=== PATIENT | male | born 1945 | race Caucasian/White ===

== ENCOUNTER 2021-12-17 10:09 | Inpatient (IN) | payer BC, MEDICARE ==
--- NOTE | 2021-12-17 11:04 | XR ---
EXAMINATION TYPE: XR chest 2V DATE OF EXAM: 12/17/2021 COMPARISON: NONE HISTORY: Cough. TECHNIQUE: Frontal and lateral views of the chest are obtained. FINDINGS: There is no focal air space opacity, pleural effusion, or pneumothorax seen. The cardiac silhouette size is within normal limits. Multilevel spurring in the spine is present. Metallic hardwa re from right shoulder surgery is partially imaged. Metallic anchors left humeral head from rotator c uff surgery are noted. IMPRESSION: No acute cardiopulmonary process.
[2021-12-17] MEDS ORDERED: DEXAMETHASONE SOD PHOSPHATE 10 MG/ML 1 ML VIAL IV STA (12:24)
[2021-12-17] MEDS ORDERED: IPRATROPIUM 0.5 MG/2.5 ML NEBU INHALATION STA (12:24)
[2021-12-17] MEDS ORDERED: ALBUTEROL NEBULIZED 2.5 MG/3 ML INHALATION STA (12:24)
--- NOTE | 2021-12-17 12:30 | ED ---
General Adult HPI - General Chief complaint: Upper Respiratory Infection Stated complaint: Cough,EMEKA Time Seen by Provider: 12/17/21 12:13 Source: patient Mode of arrival: ambulatory Limitations: no limitations - History of Present Illness Initial comments: Dictation was produced using [employer] dictation software. please excuse any grammatical, word or spelling errors. Chief Complaint: 76-year-old male presents with cough History of Present Illness: 76-year-old male presents emergency Department with cough. Patient has been having symptoms intimately for the last 8 weeks. Patient diagnosed with rotavirus 8 weeks ago. He has been having intermittent cough and shortness of breath since then. He is gone 3 course of 2 antibiotics and steroids twice. He is also had inhaler treatment. Patient at the bedside reports that he's had a similar episode in past t. Patient denies any history of COPD or asthma. No history of smoking. No history of coughing. Denies any production of sputum with his cough. No chest pain. No leg swelling. The ROS documented in this emergency department record has been reviewed and confirmed by me. Those systems with pertinent positive or negative responses have been documented in the HPI. All other systems are other negative and/or noncontributory. PHYSICAL EXAM: General Impression: Alert and oriented x3, not in acute distress HEENT: Normocephalic atraumatic, extra-ocular movements intact, pupils equal and reactive to light bilaterally, mucous membranes moist. Cardiovascular: Heart regular rate and rhythm Chest: Able to complete full sentences, no retractions, no tachypnea, diffuse lung wheezing Abdomen: abdomen soft, non-tender, non-distended, no organomegaly Musculoskeletal: Pulses present and equal in all extremities, no peripheral edema Motor: no focal deficits noted Neurological: CN II-XII grossly intact, no focal motor or sensory deficits noted Skin: Intact with no visualized rashes Psych: Normal affect and mood ED course: 76-year-old male presents emergency Department with cough. Vital signs upon arrival shows heart rate of 109, blood pressure 200/76. Patient coughing profusely. He is wheezing on auscultation of the lungs diffusely. EKG interpretation: Ventricular rate 89, sinus rhythm, right bundle branch block,. 198, QRS 137, QTC 421. No PA prolongation, no QTC prolongation, no ST or T-wave changes noted. No old EKG for comparison. Overall, this EKG is nonspecific Laboratory evaluation obtained. 13.3 leukocytosis. Secondary to stress. Venous blood gas is 7.29 pCO2 of 65 and lack of 30. Metabolic panel shows mild dehydration. No elevated proBNP. Coag tests unremarkable. Chest x-ray shows no acute processes. Clinical presentation concerning for acute obstructive pulmonary process. Given patient's lab evaluation there is concern for hypercarbic respiratory failure. Patient benefit from observation admission for [id number] breathing treatments and pulmonary consultation. Patient reevaluated at bedside 1:45 PM. She is notified of the results and is agreeable. - Related Data Allergies Allergy/AdvReac Type Severity Reaction Status Date / Time atorvastatin [From Lipitor] Allergy Unknown Verified 12/17/21 10:25 Review of Systems ROS Statement: Those systems with pertinent positive or pertinent negative responses have been documented in the HPI. ROS Other: All systems not noted in ROS Statement are negative. Past Medical History Past Medical History: Coronary Artery Disease (CAD), Hyperlipidemia, Hypertension History of Any Multi-Drug Resistant Organisms: None Reported Past Surgical History: Heart Catheterization With Stent, Orthopedic Surgery Additional Past Surgical History / Comment(s): knee and shoulder replacement Past Psychological History: No Psychological Hx Reported Smoking Status: Never smoker Past Alcohol Use History: None Reported Past Drug Use History: None Reported General Exam Limitations: no limitations Course Vital Signs 12/17/21 12/17/21 12/17/21 10:20 13:05 13:43 Temperature 98.2 F Pulse Rate 109 H 86 100 Respiratory 24 Rate Blood Pressure 200/76 O2 Sat by Pulse 95 Oximetry Medical Decision Making - Lab Data Result diagrams: 12/17/21 12:45 12/17/21 12:45 Lab Results 12/17/21 12/17/21 12/17/21 Range/Units 10:28 12:45 12:45 WBC 13.3 H (3.8-10.6) k/uL RBC 4.65 (4.30-5.90) m/uL Hgb 15.0 (13.0-17.5) gm/dL Hct 45.1 (39.0-53.0) % MCV 97.1 (80.0-100.0) fL MCH 32.3 (25.0-35.0) pg MCHC 33.3 (31.0-37.0) g/dL RDW 13.1 (11.5-15.5) % Plt Count 254 (150-450) k/uL MPV 7.5 Neutrophils % 77 % Lymphocytes % 12 % Monocytes % 4 % Eosinophils % 6 % Basophils % 1 % Neutrophils # 10.2 H (1.3-7.7) k/uL Lymphocytes # 1.6 (1.0-4.8) k/uL Monocytes # 0.5 (0-1.0) k/uL Eosinophils # 0.8 H (0-0.7) k/uL Basophils # 0.1 (0-0.2) k/uL VBG pH (7.31-7.41) VBG pCO2 (37-51) mmHg VBG HCO3 (24-28) mmol/L Sodium 138 (137-145) mmol/L Potassium 4.5 (3.5-5.1) mmol/L Chloride 101 (98-107) mmol/L Carbon Dioxide 26 (22-30) mmol/L Anion Gap 11 mmol/L BUN 30 H (9-20) mg/dL Creatinine 1.01 (0.66-1.25) mg/dL Est GFR (CKD-EPI)AfAm 85 (>60 ml/min/1.73 sqM) Est GFR (CKD-EPI)NonAf 73 (>60 ml/min/1.73 sqM) Glucose 105 H (74-99) mg/dL Calcium 10.0 (8.4-10.2) mg/dL Magnesium 2.2 (1.6-2.3) mg/dL Total Bilirubin 1.3 (0.2-1.3) mg/dL AST 44 (17-59) U/L ALT 32 (4-49) U/L Alkaline Phosphatase 94 (38-126) U/L Troponin I (0.000-0.034) ng/mL NT-Pro-B Natriuret Pep pg/mL Total Protein 7.3 (6.3-8.2) g/dL Albumin 4.4 (3.5-5.0) g/dL Coronavirus (PCR) Not Detected (Not Detectd) 12/17/21 12/17/21 12/17/21 Range/Units 12:45 12:45 12:45 WBC (3.8-10.6) k/uL RBC (4.30-5.90) m/uL Hgb (13.0-17.5) gm/dL Hct (39.0-53.0) % MCV (80.0-100.0) fL MCH (25.0-35.0) pg MCHC (31.0-37.0) g/dL RDW (11.5-15.5) % Plt Count (150-450) k/uL MPV Neutrophils % % Lymphocytes % % Monocytes % % Eosinophils % % Basophils % % Neutrophils # (1.3-7.7) k/uL Lymphocytes # (1.0-4.8) k/uL Monocytes # (0-1.0) k/uL Eosinophils # (0-0.7) k/uL Basophils # (0-0.2) k/uL VBG pH 7.29 L (7.31-7.41) VBG pCO2 65 H (37-51) mmHg VBG HCO3 30 H (24-28) mmol/L Sodium (137-145) mmol/L Potassium (3.5-5.1) mmol/L Chloride (98-107) mmol/L Carbon Dioxide (22-30) mmol/L Anion Gap mmol/L BUN (9-20) mg/dL Creatinine (0.66-1.25) mg/dL Est GFR (CKD-EPI)AfAm (>60 ml/min/1.73 sqM) Est GFR (CKD-EPI)NonAf (>60 ml/min/1.73 sqM) Glucose (74-99) mg/dL Calcium (8.4-10.2) mg/dL Magnesium (1.6-2.3) mg/dL Total Bilirubin (0.2-1.3) mg/dL AST (17-59) U/L ALT (4-49) U/L Alkaline Phosphatase (38-126) U/L Troponin I <0.012 (0.000-0.034) ng/mL NT-Pro-B Natriuret Pep 26 pg/mL Total Protein (6.3-8.2) g/dL Albumin (3.5-5.0) g/dL Coronavirus (PCR) (Not Detectd) Disposition Clinical Impression: Respiratory failure Disposition: ADMITTED IP TO THIS HOSP Condition: Fair Referrals: J Luis Pruitt MD [Primary Care Provider] - 1-2 days Decision Time: 13:44
[2021-12-17 12:56] LABS: VBG PH 7.29 (7.31-7.41)
[2021-12-17 13:05] LABS: Basophils # (A) 0.1 k/uL (0-0.2); Basophils % (A) 1 %; Eosinophils # (A) 0.8 k/uL (0-0.7); Eosinophils % (A) 6 %; HCT 45.1 % (39.0-53.0); Lymphocytes # (A) 1.6 k/uL (1.0-4.8); Lymphocytes % (A) 12 %; MCH 32.3 pg (25.0-35.0); MCHC 33.3 g/dL (31.0-37.0); MCV 97.1 fL (80.0-100.0); Mean Platelet Volume 7.5; Monocytes # (A) 0.5 k/uL (0-1.0); Monocytes % (A) 4 %; Neutrophils # (A) 10.2 k/uL (1.3-7.7); Neutrophils % (A) 77 %; Platelet Count 254 k/uL (150-450); RBC 4.65 m/uL (4.30-5.90); RDW 13.1 % (11.5-15.5); WBC 13.3 k/uL (3.8-10.6)
[2021-12-17 13:12] LABS: Albumin 4.4 g/dL (3.5-5.0); Magnesium 2.2 mg/dL (1.6-2.3); Potassium 4.5 mmol/L (3.5-5.1); Total Bilirubin 1.3 mg/dL (0.2-1.3); Total Protein 7.3 g/dL (6.3-8.2)
[2021-12-17] MEDS ORDERED: NALOXONE 0.4 MG/ML 1 ML VIAL IVP PRN (13:39)
[2021-12-17] MEDS: IPRATROPIUM-ALBUTEROL 3 ML NEB INHALATION SCH ×2 (15:40→19:03)
[2021-12-17] MEDS ORDERED: CALCIUM CARBONATE 500 MG CHEWABLE PO PRN (17:26)
[2021-12-17] MEDS ORDERED: LACTULOSE 20 GM/30 ML CUP PO PRN (17:26)
[2021-12-17] MEDS ORDERED: ALPRAZolam 0.25 MG TAB PO PRN (17:26)
[2021-12-17] MEDS ORDERED: ACETAMINOPHEN TAB 325 MG TAB PO PRN (17:26)
[2021-12-17] MEDS ORDERED: ONDANSETRON 4 MG/2 ML VIAL IVP PRN (17:26)
[2021-12-17] MEDS: BUDESONIDE 1 MG/2 ML NEBU INHALATION SCH (19:03)
[2021-12-17] MEDS: FORMOTEROL FUMARATE 20 MCG/2 ML NEBU INHALATION SCH (19:03)
[2021-12-17] MEDS: ENOXAPARIN 40 MG/0.4 ML SYRINGE SQ SCH (19:24)
[2021-12-17] MEDS: guaiFENesin 600 MG TABLET.ER PO SCH ×2 (19:25→23:02)
--- NOTE | 2021-12-17 20:48 | P.HPIM ---
History of Present Illness H&P Date: 12/17/21 Chief Complaint: Short of breath This is a pleasant 76-year-old patient follows with Dr. Alicia. 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 About 9 weeks ago patient did have COVID. 3 weeks following the patient kept having congested cough. Return to see her family doctor. Initially given steroids.. No improvement and given antibiotics and inhaler. No improvement. Went down to the ER at [facility]. Diagnosed with bronchitis. Patient contin ues to of increasing cough. Some sputum production. No fever no chills. Congestive the chest. Was feeling miserable. Decided to come to the ER. Feeling a bit better and bronchodilators. 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 No smoking or alcohol. Physical examination: VITAL SIGNS: 97.6, 91, 16, 119/76, 94% room air GENERAL: BMI 37.3, sitting on the side of bed, not in distress. EYES: Pupils equal. Conjunctiva normal. HEENT: External appearance of nose and ears normal, oral cavity grossly normal. NECK: JVD not raised; masses not palpable. HEART: First and second heart sounds are normal; no edema. LUNGS: Respiratory rate increased; wheezing, decreased breath sounds. ABDOMEN: Soft, nontender, liver spleen not palpable, no masses palpable. PSYCH: Alert and oriented x3; mood and affect normal. MUSCULOSKELETAL:No Clubbing/cyanosis;muscles-grossly intact, OA NEUROLOGICAL: Cranial nerves grossly intact; no facial asymmetry, power and sensation grossly intact. LYMPHATICS: No lymph nodes palpable in the axilla and neck INVESTIGATIONS, reviewed in the clinical context: WBC 13.3 hemoglobin 15 platelets 254 sodium 138 potassium 4.5 creatinine 1.01 pCO2 65 Troponin I less than 0.012 proBNP 26 COVID 19 PCR: Not detected EKG tracing personally reviewed by me-regular blood block, sinus rhythm Chest x-ray film personally reviewed by me-prominent pulmonary artery. Questionable hyperinflation Assessment and plan: -Possible COPD in a nonsmoker. Precipitated by COVID infection 9 weeks ago. Has failed outpatient steroids, antibiotics. DuoNeb, Perforomist, Pulmicort. Mucinex. Incentive spirometry. 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 Mucinex. Incentive spirometry. 2-D echocardiogram. Computed tomography scan of chest with contrast. Care was discussed the patient. Questions answered. Past Medical History Past Medical History: Coronary Artery Disease (CAD), Hyperlipidemia, Hyperten ester History of Any Multi-Drug Resistant Organisms: None Reported Past Surgical History: Heart Catheterization With Stent, Orthopedic Surgery Additional Past Surgical History / Comment(s): knee and shoulder replacement Date of Last Stent Placement:: 05/30/2018 Past Psychological History: No Psychological Hx Reported Smoking Status: Never smoker Past Alcohol Use History: None Reported Past Drug Use History: None Reported Medications and Allergies Home Medications Medication Instructions Recorded Confirmed Type Albuterol Sulfate [Albuterol 2 puff PO RT-Q6H PRN 12/17/21 12/17/21 History Sulfate Hfa] Aspirin EC [Ecotrin Low Dose] 81 mg PO DAILY 12/17/21 12/17/21 History Losartan [Cozaar] 50 mg PO DAILY 12/17/21 12/17/21 History Multivitamins, Thera [Multivitamin 1 tab PO DAILY 12/17/21 12/17/21 History (formulary)] Rosuvastatin Calcium 20 mg PO DAILY 12/17/21 12/17/21 History Sildenafil Citrate 100 mg PO DAILY PRN 12/17/21 12/17/21 History hydroCHLOROthiazide 12.5 mg PO DAILY 12/17/21 12/17/21 History Allergies Allergy/AdvReac Type Severity Reaction Status Date / Time atorvastatin [From Lipitor] Allergy Unknown Verified 12/17/21 15:14 Physical Exam Vitals: Vital Signs Temp Pulse Pulse Resp BP BP Pulse Ox 12/17/21 19:29 84 12/17/21 19:17 77 12/17/21 19:15 77 12/17/21 19:03 92 12/17/21 17:39 97.6 F 91 16 119/76 94 L 12/17/21 16:27 87 18 127/76 92 L 12/17/21 15:52 96 12/17/21 15:41 86 12/17/21 14:09 92 20 133/82 96 12/17/21 13:43 100 12/17/21 13:05 86 12/17/21 10:20 98.2 F 109 H 24 200/76 95 Intake and Output 12/17/21 12/17/21 12/17/21 06:59 14:59 22:59 Intake Total 240 Balance 240 Intake: Oral 240 Other: Weight 111.13 kg 111.13 kg Results CBC & Chem 7: 12/17/21 12:45 12/17/21 12:45 Labs: Abnormal Lab Results - Last 24 Hours (Table) 12/17/21 12/17/21 12/17/21 Range/Units 12:45 12:45 12:45 WBC 13.3 H (3.8-10.6) k/uL Neutrophils # 10.2 H (1.3-7.7) k/uL Eosinophils # 0.8 H (0-0.7) k/uL VBG pH 7.29 L (7.31-7.41) VBG pCO2 65 H (37-51) mmHg VBG HCO3 30 H (24-28) mmol/L BUN 30 H (9-20) mg/dL Glucose 105 H (74-99) mg/dL
[2021-12-17] MEDS: TAMSULOSIN 0.4 MG CAP.ER.24H PO SCH (23:02)
--- NOTE | 2021-12-18 07:58 | CT ---
EXAMINATION TYPE: CT chest wo/w con DATE OF EXAM: 12/18/2021 COMPARISON: None HISTORY: Short of breath, congested after COVID 2 months, hypercarbic resp. failure CT DLP: 1376.4 mGycm Automated exposure control for dose reduction was used. CONTRAST: CT scan of the chest is performed without and with IV Contrast, patient injected with 70 mL of Isovue 300. FINDINGS: LUNGS: Nodularity superior segment right lower lobe measuring up to 11 mm. Additional branching nodul es seen measuring 6 mm and 5.6 mm respectively. The findings could reflect postinflammatory change. F ollow-up in 3 months is advised. No nodules are seen within the left lung. There is a granuloma noted within the lateral segment of the right middle lobe. The lungs are otherwise clear. No infiltrate or pleural effusion. No evidence for volume loss. MEDIASTINUM: There are no greater than 1 cm hilar or mediastinal lymph nodes. No pericardial effusi on is seen. Thoracic aorta is of normal caliber. The heart is not enlarged. Small hiatal hernia. UPPER ABDOMEN: No significant abnormality appreciated. OTHER: No additional significant abnormality is seen. IMPRESSION: 1. Branching nodularity just superior segment right lower lobe as well as a calcified granuloma withi n the right middle lobe. The findings may be postinflammatory in nature. Follow-up in 3 months is adv ised.
[2021-12-18] MEDS: FORMOTEROL FUMARATE 20 MCG/2 ML NEBU INHALATION SCH ×2 (08:25→20:49)
[2021-12-18] MEDS: BUDESONIDE 1 MG/2 ML NEBU INHALATION SCH ×2 (08:25→20:49)
[2021-12-18] MEDS: IPRATROPIUM-ALBUTEROL 3 ML NEB INHALATION SCH ×4 (08:25→20:49)
[2021-12-18] MEDS: NON FORMULARY DRUG (Rosuvastatin Calcium [Rosuvastatin Calcium] 40 MG Tablet) PO SCH (09:10)
[2021-12-18] MEDS: hydroCHLOROthiazide 12.5 MG CAP PO SCH (09:24)
[2021-12-18] MEDS: guaiFENesin 600 MG TABLET.ER PO SCH ×4 (09:24→23:04)
[2021-12-18] MEDS: MULTIVITAMINS, THERA 1 EACH TAB PO SCH (09:24)
[2021-12-18] MEDS: ENOXAPARIN 40 MG/0.4 ML SYRINGE SQ SCH (09:24)
[2021-12-18] MEDS: ASPIRIN 81 MG PO SCH (09:24)
[2021-12-18] MEDS: LOSARTAN 50 MG TAB PO SCH (09:24)
[2021-12-18] MEDS: methylPREDNISolone SOD SUCCI 125 MG/2 ML VIAL IV SCH ×3 (09:24→21:26)
--- NOTE | 2021-12-18 10:46 | P.CNPUL ---
History of Present Illness Consult date: 12/18/21 Requesting physician: Tito Andres Reason for consult: cough Chief complaint: Chronic cough History of present illness: This is a very pleasant 76-year-old male patient who follows with Dr. Pruitt as his primary care provider. He has a history of hypertension, hyperlipidemia, coronary artery disease with previous stent placement, osteoarthritis with multiple orthopedic surgeries. He developed COVID-19 infection about 9 weeks ago and since that time he has been suffering with a chronic cough. He has been treated with multiple rounds of antibiotics and steroids in the outpatient setting without much improvement. He denies any acid reflux. No sinus drainage. He is a lifelong nonsmoker. No previous history of asthma or COPD. Chest x-ray reveals no acute pulmonary process. CT scan of the chest revealed branching nodularity in the superior segment of the right lower lobe as well as calcified granuloma within the right middle lobe. Findings most likely postinflammatory in nature. White count 13.3. Hemoglobin 15.0. Sodium 138. Potassium 4.5. BUN 30. Creatinine 1.01. Glucose 105. ProBNP 26. Gagnon virus by PCR not detected. Pro-calcitonin pending. The patient is seen today in consultation on the regular medical floor. He is currently sitting up in bed. Awake and alert in no acute distress. Maintaining good O2 saturations in the 90s on room air. He continues with a dry nonproductive cough. Some faint wheezing. He was initiated on Pulmicort and Perforomist inhalations, DuoNeb inhalations. Review of Systems REVIEW OF SYSTEMS: CONSTITUTIONAL: Denies any recent significant weight loss or weight gain. EYES: Denies change in vision. EARS, NOSE, MOUTH, THROAT: Denies headaches, denies sore throat. CARDIOVASCULAR: Denies chest pain, palpitations or syncopal episodes. RESPIRATORY: Positive for cough, congestion no hemoptysis. GASTROINTESTINAL: Denies change in appetite, denies abdominal pain GENITOURINARY: Denies hematuria, denies infections. MUSKULOSKELETAL: Denies pain, denies swelling. INTEGUMENTARY: Denies rash, denies eczema. NEUROLOGICAL: Denies recent memory loss, no recent seizure activity. PSYCHIATRIC: Denies anxiety, denies depression. HEMATOLOGIC/LYMPHATIC: Denies anemia, denies enlarged lymph nodes. Past Medical History Past Medical History: Coronary Artery Disease (CAD), Hyperlipidemia, Hypertension History of Any Multi-Drug Resistant Organisms: None Reported Past Surgical History: Heart Catheterization With Stent, Orthopedic Surgery Additional Past Surgical History / Comment(s): knee and shoulder replacement Date of Last Stent Placement:: 05/30/2018 Past Psychological History: No Psychological Hx Reported Smoking Status: Never smoker Past Alcohol Use History: None Reported Past Drug Use History: None Reported Medications and Allergies Home Medications Medication Instructions Recorded Confirmed Type Albuterol Sulfate [Albuterol 2 puff PO RT-Q6H PRN 12/17/21 12/17/21 History Sulfate Hfa] Aspirin EC [Ecotrin Low Dose] 81 mg PO DAILY 12/17/21 12/17/21 History Losartan [Cozaar] 50 mg PO DAILY 12/17/21 12/17/21 History Multivitamins, Thera [Multivitamin 1 tab PO DAILY 12/17/21 12/17/21 History (formulary)] Rosuvastatin Calcium 20 mg PO DAILY 12/17/21 12/17/21 History Sildenafil Citrate 100 mg PO DAILY PRN 12/17/21 12/17/21 History hydroCHLOROthiazide 12.5 mg PO DAILY 12/17/21 12/17/21 History Allergies Allergy/AdvReac Type Severity Reaction Status Date / Time atorvastatin [From Lipitor] Allergy Unknown Verified 12/17/21 15:14 Physical Exam Vitals: Vital Signs Temp Pulse Pulse Resp BP BP Pulse Ox 12/18/21 08:56 99 12/18/21 08:39 100 12/18/21 08:38 100 12/18/21 08:26 94 12/18/21 07:00 97.8 F 81 18 128/78 92 L 12/18/21 01:20 98.4 F 69 19 145/72 95 12/17/21 20:00 97.9 F 77 18 113/73 99 12/17/21 19:29 84 12/17/21 19:17 77 12/17/21 19:15 77 12/17/21 19:03 92 12/17/21 17:39 97.6 F 91 16 119/76 94 L 12/17/21 16:27 87 18 127/76 92 L 12/17/21 15:52 96 12/17/21 15:41 86 12/17/21 14:09 92 20 133/82 96 12/17/21 13:43 100 12/17/21 13:05 86 Intake and Output 12/17/21 12/18/21 12/18/21 22:59 06:59 14:59 Intake Total 240 118 Balance 240 118 Intake: Oral 240 118 Other: Voiding Method Self-Catheterization Self-Catheterization Self-Catheterization # Voids 1 2 Weight 111.13 kg GENERAL EXAM: Alert, very pleasant 76-year-old male patient, on room air, comfortable in no apparent distress. HEAD: Normocephalic. EYES: Normal reaction of pupils, equal size. NOSE: Clear with pink turbinates. THROAT: No erythema or exudates. NECK: No masses, no JVD. CHEST: No chest wall deformity. LUNGS: Equal air entry with faint end expiratory wheeze. CVS: S1 and S2 normal with no audible murmur, regular rhythm. ABDOMEN: No hepatosplenomegaly, normal bowel sounds, no guarding or rigidity. SPINE: No scoliosis or deformity SKIN: No rashes CENTRAL NERVOUS SYSTEM: No focal deficits, tone is normal in all 4 extremities. EXTREMITIES: There is no peripheral edema. No clubbing, no cyanosis. Peripheral pulses are intact. Results - Laboratory Findings CBC and BMP: 12/17/21 12:45 12/17/21 12:45 Abnormal lab findings: Abnormal Labs 12/17/21 12/17/21 12/17/21 12:45 12:45 12:45 WBC 13.3 H Neutrophils # 10.2 H Eosinophils # 0.8 H VBG pH 7.29 L VBG pCO2 65 H VBG HCO3 30 H BUN 30 H Glucose 105 H - Diagnostic Findings Chest x-ray: image reviewed CT scan - chest: image reviewed Assessment and Plan Assessment: Chronic cough suspect secondary to post viral infection and the patient known to have COVID-19 approximate 9 weeks ago. Failed outpatient treatment with multiple rounds of antibiotics and steroids Branch nodularity in the superior segment of the right lower lobe as well as calcified granuloma within the right middle lobe. Most likely representing postinflammatory changes. Lifelong nonsmoker Coronary disease with previous stent placement Hypertension Hyperlipidemia Osteoarthritis of multiple orthopedic surgeries Plan: The patient was seen and evaluated CAT scan, chest x-ray, medications and labs reviewed Add IV Solu-Medrol Continue bronchodilators Procalcitonin pending Will most likely require 3-4 weeks of steroid treatment Will have a follow-up CAT scan of the chest in 3 months He'll follow up in our office post discharge Probable home in the a.m. We will continue to follow and make further recommendations based on his clinical status I have personally seen and examined the patient, performed the documentation and the assessment and plan as written. Number of minutes spent on the visit: 20.
--- NOTE | 2021-12-18 14:30 | P.PN ---
Progress Note - Text Progress Note Date: 12/18/21 Chief Complaint: Short of breath This is a pleasant 76-year-old patient follows with Dr. Alicia. 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 About 9 weeks ago geraldine delgado did have COVID. 3 weeks following the patient kept having congested cough. Return to see her family doctor. Initially given steroids.. No improvement and given antibiotics and inhaler. No improvement. Went down to the ER at [facility]. Diagnosed with bronchitis. Patient continues to of increasing cough. Some sputum production. No fever no chills. Congestive the chest. Was feeling miserable. Decided to come to the ER. Feeling a bit better and bronchodilators. Admitted with COPD exacerbation precipitated by COVID 19. Started on nebulized, tinnitus, steroids, Mucinex, incentive spirometry. December 18: Some cough still present. Breathing a bit better. Less congested. Oral intake fair. IV Solu-Medrol added. Discussed with patient. Active Medications Acetaminophen (Acetaminophen Tab 325 Mg Tab) 650 mg PO Q6HR PRN PRN Reason: Mild Pain or Fever > 100.5 Albuterol/Ipratropium (Ipratropium-Albuterol 3 Ml Neb) 3 ml INHALATION RT-QID [facility] Last Admin: 12/18/21 11:49 Dose: 3 ml Alprazolam (Alprazolam 0.25 Mg Tab) 0.25 mg PO Q6HR PRN PRN Reason: Anxiety Aspirin (Aspirin 81 Mg) 81 mg PO DAILY [facility] Last Admin: 12/18/21 09:24 Dose: 81 mg Budesonide (Budesonide 1 Mg/2 Ml Nebu) 1 mg INHALATION RT-BID [facility] Last Admin: 12/18/21 08:25 Dose: 1 mg Calcium Carbonate/Glycine (Calcium Carbonate 500 Mg Chewable) 1,000 mg PO Q4HR PRN PRN Reason: Dyspepsia Enoxaparin Sodium (Enoxaparin 40 Mg/0.4 Ml Syringe) 40 mg SQ DAILY [facility] Last Admin: 12/18/21 09:24 Dose: 40 mg Formoterol Fumarate (Formoterol Fumarate 20 Mcg/2 Ml Nebu) 20 mcg INHALATION RT-BID [facility] Last Admin: 12/18/21 08:25 Dose: 20 mcg Guaifenesin (Guaifenesin 600 Mg Tablet.Er) 600 mg PO QID [facility] Last Admin: 12/18/21 09:24 Dose: 600 mg Hydrochlorothiazide (Hydrochlorothiazide 12.5 Mg Cap) 12.5 mg PO DAILY [facility] Last Admin: 12/18/21 09:24 Dose: 12.5 mg Lactulose (Lactulose 20 Gm/30 Ml Cup) 20 gm PO DAILY PRN PRN Reason: Constipation Losartan Potassium (Losartan 50 Mg Tab) 50 mg PO DAILY [facility] Last Admin: 12/18/21 09:24 Dose: 50 mg Methylprednisolone Sodium Succinate (Methylprednisolone Sod Succi 125 Mg/2 Ml Vial) 60 mg IV Q6HR [facility] Last Admin: 12/18/21 09:24 Dose: 60 mg Multivitamins (Multivitamins, Thera 1 Each Tab) 1 each PO DAILY [facility] Last Admin: 12/18/21 09:24 Dose: 1 each Naloxone HCl (Naloxone 0.4 Mg/Ml 1 Ml Vial) 0.2 mg IVP Q2M PRN PRN Reason: Opioid Reversal Non-Formulary Medication (Rosuvastatin Calcium [Rosuvastatin Calcium]) 20 mg PO DAILY [facility] Last Admin: 12/18/21 09:10 Dose: Not Given Ondansetron HCl (Ondansetron 4 Mg/2 Ml Vial) 4 mg IVP Q8HR PRN PRN Reason: Nausea And Vomiting Tamsulosin HCl (Tamsulosin 0.4 Mg Cap.Er.24h) 0.4 mg PO PC-SUPPER [facility] Last Admin: 12/17/21 23:02 Dose: 0.4 mg Past medical history to include: CAD with stent, hyperlipidemia, hypertension, atonic bladder with self- catheterization from BPH Social history: . 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 No smoking or alcohol. Physical examination: VITAL SIGNS: 97.8, 81, 18, 128.78, 92% room air GENERAL: Reclining in bed, feeling a bit better EYES: Pupils equal. Conjunctiva normal. HEENT: External appearance of nose and ears normal, oral cavity grossly normal. NECK: JVD not raised; masses not palpable. HEART: First and second heart sounds are normal; no edema. LUNGS: Respiratory rate increased; less wheezing, decreased breath sounds. ABDOMEN: Soft, nontender, liver spleen not palpable, no masses palpable. PSYCH: Alert and oriented x3; mood and affect normal. MUSCULOSKELETAL:No Clubbing/cyanosis;muscles-grossly intact, OA INVESTIGATIONS, reviewed in the clinical context: Computed tomography scan chest: Bronchial nodularity just superior segment right lower lobe as well as calcified granuloma at the right middle lobe. WBC 13.3 hemoglobin 15 platelets 254 sodium 138 potassium 4.5 creatinine 1.01 pCO2 65 Troponin I less than 0.012 proBNP 26 COVID 19 PCR: Not detected EKG tracing personally reviewed by me-regular blood block, sinus rhythm Chest x-ray film personally reviewed by me-prominent pulmonary artery. Questionable hyperinflation Assessment and plan: -Possible COPD in a nonsmoker. Precipitated by COVID infection 9 weeks ago. Has failed outpatient steroids, antibiotics. DuoNeb, Perforomist, Pulmicort. Mucinex. Incentive spirometry. 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 Mucinex. Incentive spirometry. 2-D echocardiogram pending. IV Solu-Medrol added by pulmonary. Increased activity. Possibly discharge tomorrow.
[2021-12-18] MEDS: TAMSULOSIN 0.4 MG CAP.ER.24H PO SCH (17:59)
[2021-12-19] MEDS: methylPREDNISolone SOD SUCCI 125 MG/2 ML VIAL IV SCH ×5 (01:35→23:11)
[2021-12-19] MEDS: FORMOTEROL FUMARATE 20 MCG/2 ML NEBU INHALATION SCH ×2 (07:34→19:32)
[2021-12-19] MEDS: BUDESONIDE 1 MG/2 ML NEBU INHALATION SCH ×2 (07:34→19:32)
[2021-12-19] MEDS: IPRATROPIUM-ALBUTEROL 3 ML NEB INHALATION SCH ×4 (07:34→19:32)
[2021-12-19] MEDS ORDERED: PANTOPRAZOLE 40 MG TABLET PO SCH (08:15)
[2021-12-19] MEDS: LOSARTAN 50 MG TAB PO SCH (08:29)
[2021-12-19] MEDS: NON FORMULARY DRUG (Rosuvastatin Calcium [Rosuvastatin Calcium] 40 MG Tablet) PO SCH (08:30)
[2021-12-19] MEDS: ASPIRIN 81 MG PO SCH (08:30)
[2021-12-19] MEDS: ENOXAPARIN 40 MG/0.4 ML SYRINGE SQ SCH (08:30)
[2021-12-19] MEDS: hydroCHLOROthiazide 12.5 MG CAP PO SCH (08:30)
[2021-12-19] MEDS: MULTIVITAMINS, THERA 1 EACH TAB PO SCH (08:30)
[2021-12-19] MEDS: guaiFENesin 600 MG TABLET.ER PO SCH ×4 (08:30→20:25)
--- NOTE | 2021-12-19 09:07 | CA ---
Transthoracic Echo Report Name: Walker Rivera Age: 76 Gender: M : 1945 Exam Date: 12/18/2021 08:57 Exam Location: [facility] Ht (in): 68 Wt (lb): 245 Ordering Physician: Tito Andres MD Attending/Referring Phys: Dye Tub Tender Denise Sevilla RDCS Procedure CPT: Indications: evaluate for pulmonary hypertension Cardiac Hx: Technical Quality: Contrast 1: Total Dose (mL): Contrast 2: Total Dose (mL): MEASUREMENTS (Male / Female) Normal Values 2D ECHO RV Internal Dim ED PLAX 3.7 cm LA Volume 58.9 cm??? 18 - 58 / 22 - 52 cm??? M-MODE Aortic Root Diameter MM 3.1 cm LA Systolic Diameter MM 4.0 cm LA Ao Ratio MM 1.3 AV Cusp Separation MM 2.0 cm DOPPLER AV Peak Velocity 242.7 cm/s AV Peak Gradient 23.6 mmHg AV Mean Velocity 156.9 cm/s AV Mean Gradient 11.7 mmHg AV Velocity Time Integral 41.3 cm AI Peak Velocity 388.6 cm/s AI Peak Gradient 60.4 mmHg AI Pressure Half Time 370.4 ms LVOT Peak Velocity 150.9 cm/s LVOT Peak Gradient 9.1 mmHg FINDINGS Left Ventricle Normal Left ventricular size, mild wall thickness, systolic function with no obvious regional wall motion abnormalities. Right Ventricle Normal right ventricular size and function. Right Atrium Normal right atrial size. Left Atrium Normal left atrial size. Mitral Valve Mitral annular calcification. Mild mitral regurgitation. Aortic Valve Mild aortic stenosis with a peak gradient of 24 mmHg and a mean gradient of 12 mmHg. Tricuspid Valve Structurally normal tricuspid valve. Pulmonic Valve Pulmonic valve not well visualized. Pericardium Normal pericardium. Aorta Normal size aortic root and proximal ascending aorta. CONCLUSIONS Technically difficult study for interpretation Hyperdynamic left ventricle Mild aortic stenosis Previewed by: Dr. Chris Kahn MD (Electronically Signed) Final Date: 19 December 2021 09:07
--- NOTE | 2021-12-19 11:27 | P.PN ---
Subjective Progress Note Date: 12/19/21 This is a very pleasant 76-year-old male patient who follows with Dr. Pruitt as his primary care provider. He has a history of hypertension, hyperlipidemia, coronary artery disease with previous stent placement, osteoarthritis with multiple orthopedic surgeries. He developed COVID-19 infection about 9 weeks ago and since that time he has been suffering with a chronic cough. He has been treated with multiple rounds of antibiotics and steroids in the outpatient setting without much improvement. He denies any acid reflux. No sinus drainage. He is a lifelong nonsmoker. No previous history of asthma or COPD. Chest x-ray reveals no acute pulmonary process. CT scan of the chest revealed branching nodularity in the superior segment of the right lower lobe as well as calcified granuloma within the right middle lobe. Findings most likely postinflammatory in nature. White count 13.3. Hemoglobin 15.0. Sodium 138. Potassium 4.5. BUN 30. Creatinine 1.01. Glucose 105. ProBNP 26. Gagnon vi shahnaz by PCR not detected. Pro-calcitonin pending. The patient is seen today in consultation on the regular medical floor. He is currently sitting up in bed. Awake and alert in no acute distress. Maintaining good O2 saturations in the 90s on room air. He continues with a dry nonproductive cough. Some faint wheezing. He was initiated on Pulmicort and Perforomist inhalations, DuoNeb inhalations. The patient is seen today 12/19/2021 in follow-up on the regular medical floor. He is awake and alert in no acute distress. He has had ongoing issues with cough and congestion. Not much improvement today compared to yesterday. He continues to maintain good O2 saturations in the 90s on room air. He's afebrile. Hemodynamically stable. He is continued on DuoNeb inhalations, Pulmicort and Perforomist inhalations, IV Solu-Medrol. Objective - Vital Signs Vital signs: Vital Signs Temp 97.9 F 12/19/21 07:00 Pulse 68 12/19/21 11:08 Resp 18 12/19/21 07:00 BP 154/78 12/19/21 07:00 Pulse Ox 94 L 12/19/21 07:00 FiO2 Intake & Output 12/18/21 12/19/21 12/19/21 18:59 06:59 18:59 Intake Total 236 118 Balance 236 118 Intake: Oral 236 118 Other: Voiding Method Self-Catheterization Self-Catheterization # Voids 2 3 - Exam GENERAL EXAM: Alert, 76-year-old male, room air, comfortable in no apparent distress. HEAD: Normocephalic. EYES: Normal reaction of pupils, equal size. NOSE: Clear with pink turbinates. THROAT: No erythema or exudates. NECK: No masses, no JVD. CHEST: No chest wall deformity. LUNGS: Equal air entry with bilateral end expiratory wheeze. CVS: S1 and S2 normal with no audible murmur, regular rhythm. ABDOMEN: No hepatosplenomegaly, normal bowel sounds, no guarding or rigidity. SPINE: No scoliosis or deformity SKIN: No rashes CENTRAL NERVOUS SYSTEM: No focal deficits, tone is normal in all 4 extremities. EXTREMITIES: There is no peripheral edema. No clubbing, no cyanosis. Peripheral pulses are intact. - Labs CBC & Chem 7: 12/17/21 12:45 12/17/21 12:45 Assessment and Plan Assessment: Chronic cough suspect secondary to post viral infection and the patient known to have COVID-19 approximate 9 weeks ago. Failed outpatient treatment with multiple rounds of antibiotics and steroids Branch nodularity in the superior segment of the right lower lobe as well as calcified granuloma within the right middle lobe. Most likely representing postinflammatory changes. Lifelong nonsmoker Coronary disease with previous stent placement Hypertension Hyperlipidemia Osteoarthritis of multiple orthopedic surgeries Plan: The patient was seen and evaluated Not much improvement today compared to yesterday Continue bronchodilators Add Singulair, Robitussin, Protonix Procalcitonin negative Will most likely require 3-4 weeks of steroid treatment We will continue to follow I have personally seen and examined the patient, performed the documentation and the assessment and plan as written. Number of minutes spent on the visit: 10.
[2021-12-19] MEDS: guaiFENesin-Coden 100-10MG/5ML 10 ML CUP PO SCH ×3 (12:45→23:11)
--- NOTE | 2021-12-19 17:50 | P.PN ---
Progress Note - Text Progress Note Date: 12/19/21 Chief Complaint: Short of breath This is a pleasant 76-year-old patient follows with Dr. Alicia. 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 About 9 weeks ago geraldine delgado did have COVID. 3 weeks following the patient kept having congested cough. Return to see her family doctor. Initially given steroids.. No improvement and given antibiotics and inhaler. No improvement. Went down to the ER at [facility]. Diagnosed with bronchitis. Patient continues to of increasing cough. Some sputum production. No fever no chills. Congestive the chest. Was feeling miserable. Decided to come to the ER. Feeling a bit better and bronchodilators. Admitted with COPD exacerbation precipitated by COVID 19. Started on nebulized, tinnitus, steroids, Mucinex, incentive spirometry. December 18: Some cough still present. Breathing a bit better. Less congested. Oral intake fair. IV Solu-Medrol added. Discussed with patient. December 19: Patient had severe bout of coughing last night. He notices that is much worse when he lies down. Protonix being added. Also told to avoid cold liquids. Bronchitis Solu-Medrol to continue. Oral intake fair. Warm water with salt gargle. Discussed with patient and daughter the bedside. Active Medications Acetaminophen (Acetaminophen Tab 325 Mg Tab) 650 mg PO Q6HR PRN PRN Reason: Mild Pain or Fever > 100.5 Albuterol/Ipratropium (Ipratropium-Albuterol 3 Ml Neb) 3 ml INHALATION RT-QID [facility] Last Admin: 12/19/21 15:04 Dose: 3 ml Alprazolam (Alprazolam 0.25 Mg Tab) 0.25 mg PO Q6HR PRN PRN Reason: Anxiety Last Admin: 12/19/21 01:40 Dose: 0.25 mg Aspirin (Aspirin 81 Mg) 81 mg PO DAILY [facility] Last Admin: 12/19/21 08:30 Dose: 81 mg Budesonide (Budesonide 1 Mg/2 Ml Nebu) 1 mg INHALATION RT-BID [facility] Last Admin: 12/19/21 07:34 Dose: 1 mg Calcium Carbonate/Glycine (Calcium Carbonate 500 Mg Chewable) 1,000 mg PO Q4HR PRN PRN Reason: Dyspepsia Enoxaparin Sodium (Enoxaparin 40 Mg/0.4 Ml Syringe) 40 mg SQ DAILY [facility] Last Admin: 12/19/21 08:30 Dose: 40 mg Formoterol Fumarate (Formoterol Fumarate 20 Mcg/2 Ml Nebu) 20 mcg INHALATION RT-BID [facility] Last Admin: 12/19/21 07:34 Dose: 20 mcg Guaifenesin (Guaifenesin 600 Mg Tablet.Er) 600 mg PO QID [facility] Last Admin: 12/19/21 13:10 Dose: Not Given Guaifenesin/Codeine Phosphate (Guaifenesin-Coden 100-10mg/5ml 10 Ml Cup) 10 ml PO Q6HR [facility] Last Admin: 12/19/21 12:45 Dose: 10 ml Hydrochlorothiazide (Hydrochlorothiazide 12.5 Mg Cap) 12.5 mg PO DAILY [facility] Last Admin: 12/19/21 08:30 Dose: 12.5 mg Lactulose (Lactulose 20 Gm/30 Ml Cup) 20 gm PO DAILY PRN PRN Reason: Constipation Losartan Potassium (Losartan 50 Mg Tab) 50 mg PO DAILY [facility] Last Admin: 12/19/21 08:29 Dose: 50 mg Methylprednisolone Sodium Succinate (Methylprednisolone Sod Succi 125 Mg/2 Ml Vial) 60 mg IV Q6HR [facility] Last Admin: 12/19/21 12:46 Dose: 60 mg Montelukast Sodium (Montelukast 10 Mg Tab) 10 mg PO [facility] Multivitamins (Multivitamins, Thera 1 Each Tab) 1 each PO DAILY [facility] Last Admin: 12/19/21 08:30 Dose: 1 each Naloxone HCl (Naloxone 0.4 Mg/Ml 1 Ml Vial) 0.2 mg IVP Q2M PRN PRN Reason: Opioid Reversal Non-Formulary Medication (Rosuvastatin Calcium [Rosuvastatin Calcium]) 20 mg PO DAILY [facility] Last Admin: 12/19/21 08:30 Dose: Not Given Ondansetron HCl (Ondansetron 4 Mg/2 Ml Vial) 4 mg IVP Q8HR PRN PRN Reason: Nausea And Vomiting Pantoprazole Sodium (Pantoprazole 40 Mg Tablet) 40 mg PO AC-BID [facility] Tamsulosin HCl (Tamsulosin 0.4 Mg Cap.Er.24h) 0.4 mg PO PC-SUPPER [facility] Last Admin: 12/18/21 17:59 Dose: 0.4 mg Past medical history to include: CAD with stent, hyperlipidemia, hypertension, atonic bladder with self- catheterization from BPH 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 Physical examination: VITAL SIGNS: 98, 85, 18, 115/60, 93% room air GENERAL: Sitting up, in distress EYES: Pupils equal. Conjunctiva normal. HEENT: External appearance of nose and ears normal, oral cavity grossly normal. NECK: JVD not raised; masses not palpable. HEART: First and second heart sounds are normal; no edema. LUNGS: Respiratory rate increased; occasional wheezing, decreased breath sounds. ABDOMEN: Soft, nontender, liver spleen not palpable, no masses palpable. PSYCH: Alert and oriented x3; mood and affect normal. MUSCULOSKELETAL:No Clubbing/cyanosis;muscles-grossly intact, OA INVESTIGATIONS, reviewed in the clinical context: 2-D echocardiogram: Normal LV function. Computed tomography scan chest: Bronchial nodularity just superior segment right lower lobe as well as calcified granuloma at the right middle lobe. WBC 13.3 hemoglobin 15 platelets 254 sodium 138 potassium 4.5 creatinine 1.01 pCO2 65 Troponin I less than 0.012 proBNP 26 COVID 19 PCR: Not detected EKG tracing personally reviewed by me-regular blood block, sinus rhythm Chest x-ray film personally reviewed by me-prominent pulmonary artery. Questionable hyperinflation Assessment and plan: -Possible COPD in a nonsmoker. Precipitated by COVID infection 9 weeks ago. Has failed outpatient steroids, antibiotics. DuoNeb, Perforomist, Pulmicort. Mucinex. Incentive spirometry. IV Solu-Medrol -Bouts of coughing possibly precipitated by reflux Protonix. -Abnormal computed tomography scan chest: Follow-up with Dr. 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 Mucinex. Incentive spirometry. IV Solu-Medrol . Add Protonix. Patient advised to not lie down for 3 hours after his supper. Increase activity. Discussed with patient daughter the bedside.
[2021-12-19] MEDS: PANTOPRAZOLE 40 MG TABLET PO SCH (17:54)
[2021-12-19] MEDS: TAMSULOSIN 0.4 MG CAP.ER.24H PO SCH (17:54)
[2021-12-19] MEDS: MONTELUKAST 10 MG TAB PO SCH (20:25)
[2021-12-20] MEDS: methylPREDNISolone SOD SUCCI 125 MG/2 ML VIAL IV SCH ×4 (05:40→23:56)
[2021-12-20] MEDS: guaiFENesin-Coden 100-10MG/5ML 10 ML CUP PO SCH ×4 (05:41→23:56)
[2021-12-20] MEDS: MULTIVITAMINS, THERA 1 EACH TAB PO SCH (08:26)
[2021-12-20] MEDS: hydroCHLOROthiazide 12.5 MG CAP PO SCH (08:26)
[2021-12-20] MEDS: LOSARTAN 50 MG TAB PO SCH (08:26)
[2021-12-20] MEDS: PANTOPRAZOLE 40 MG TABLET PO SCH ×2 (08:26→17:28)
[2021-12-20] MEDS: guaiFENesin 600 MG TABLET.ER PO SCH ×4 (08:26→20:43)
[2021-12-20] MEDS: ENOXAPARIN 40 MG/0.4 ML SYRINGE SQ SCH (08:26)
[2021-12-20] MEDS: ASPIRIN 81 MG PO SCH (08:26)
[2021-12-20] MEDS: NON FORMULARY DRUG (Rosuvastatin Calcium [Rosuvastatin Calcium] 40 MG Tablet) PO SCH (08:27)
[2021-12-20] MEDS: IPRATROPIUM-ALBUTEROL 3 ML NEB INHALATION SCH ×4 (08:54→20:28)
[2021-12-20] MEDS: BUDESONIDE 1 MG/2 ML NEBU INHALATION SCH ×2 (08:54→20:28)
[2021-12-20] MEDS: FORMOTEROL FUMARATE 20 MCG/2 ML NEBU INHALATION SCH ×2 (08:54→20:28)
--- NOTE | 2021-12-20 10:25 | P.PN ---
Subjective Progress Note Date: 12/20/21 This is a very pleasant 76-year-old male patient who follows with Dr. Pruitt as his primary care provider. He has a history of hypertension, hyperlipidemia, coronary artery disease with previous stent placement, osteoarthritis with multiple orthopedic surgeries. He developed COVID-19 infection about 9 weeks ago and since that time he has been suffering with a chronic cough. He has been treated with multiple rounds of antibiotics and steroids in the outpatient setting without much improvement. He denies any acid reflux. No sinus drainage. He is a lifelong nonsmoker. No previous history of asthma or COPD. Chest x-ray reveals no acute pulmonary process. CT scan of the chest revealed branching nodularity in the superior segment of the right lower lobe as well as calcified granuloma within the right middle lobe. Findings most likely postinflammatory in nature. White count 13.3. Hemoglobin 15.0. Sodium 138. Potassium 4.5. BUN 30. Creatinine 1.01. Glucose 105. ProBNP 26. Gagnon vi shahnaz by PCR not detected. Pro-calcitonin pending. The patient is seen today in consultation on the regular medical floor. He is currently sitting up in bed. Awake and alert in no acute distress. Maintaining good O2 saturations in the 90s on room air. He continues with a dry nonproductive cough. Some faint wheezing. He was initiated on Pulmicort and Perforomist inhalations, DuoNeb inhalations. The patient is seen today 12/19/2021 in follow-up on the regular medical floor. He is awake and alert in no acute distress. He has had ongoing issues with cough and congestion. Not much improvement today compared to yesterday. He continues to maintain good O2 saturations in the 90s on room air. He's afebrile. Hemodynamically stable. He is continued on DuoNeb inhalations, Pulmicort and Perforomist inhalations, IV Solu-Medrol. The patient is seen today 12/20/2021 in follow-up on the regular medical floor. He is currently resting comfortably in bed. Awake and alert in no acute distr ess. He is feeling better today. Not quite back to his baseline. Still with a nonproductive cough. Still with some wheezing. He is continued on DuoNeb inhalations, Pulmicort and Perforomist inhalations, IV Solu-Medrol. He remains on Singulair, Robitussin, Mucinex. Lovenox for DVT prophylaxis. Objective - Vital Signs Vital signs: Vital Signs Temp 97.7 F 12/20/21 07:00 Pulse 72 12/20/21 09:16 Resp 18 12/20/21 08:00 BP 147/81 12/20/21 07:00 Pulse Ox 95 12/20/21 07:00 FiO2 Intake & Output 12/19/21 12/20/21 12/20/21 18:59 06:59 18:59 Intake Total 236 300 Balance 236 300 Intake: Oral 236 300 Other: Voiding Method Self-Catheterization Self-Catheterization Toilet Self-Catheterization # Voids 1 2 - Exam GENERAL EXAM: Alert, obese, pleasant 76-year-old male, room air, comfortable in no apparent distress. HEAD: Normocephalic. EYES: Normal reaction of pupils, equal size. NOSE: Clear with pink turbinates. THROAT: No erythema or exudates. NECK: No masses, no JVD. CHEST: No chest wall deformity. LUNGS: Equal air entry with bilateral end expiratory wheeze. CVS: S1 and S2 normal with no audible murmur, regular rhythm. ABDOMEN: No hepatosplenomegaly, normal bowel sounds, no guarding or rigidity. SPINE: No scoliosis or deformity SKIN: No rashes CENTRAL NERVOUS SYSTEM: No focal deficits, tone is normal in all 4 extremities. EXTREMITIES: There is no peripheral edema. No clubbing, no cyanosis. Peripheral pulses are intact. - Labs CBC & Chem 7: 12/17/21 12:45 12/17/21 12:45 Assessment and Plan Assessment: Chronic cough suspect secondary to post viral infection and the patient known to have COVID-19 approximate 9 weeks ago. Failed outpatient treatment with multiple rounds of antibiotics and steroids Branch nodularity in the superior segment of the right lower lobe as well as calcified granuloma within the right middle lobe. Most likely representing postinflammatory changes. Lifelong nonsmoker Coronary disease with previous stent placement Hypertension Hyperlipidemia Osteoarthritis of multiple orthopedic surgeries Plan: The patient was seen and evaluated Improved today but not quite back to baseline Continue the current treatment plan Probably home in a.m. We will continue to follow I have personally seen and examined the patient, performed the documentation and the assessment and plan as written. Number of minutes spent on the visit: 10.
--- NOTE | 2021-12-20 14:52 | P.PN ---
Progress Note - Text Progress Note Date: 12/20/21 Chief Complaint: Short of breath This is a pleasant 76-year-old patient follows with Dr. Alicia. 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 About 9 weeks ago geraldine delgado did have COVID. 3 weeks following the patient kept having congested cough. Return to see her family doctor. Initially given steroids.. No improvement and given antibiotics and inhaler. No improvement. Went down to the ER at [facility]. Diagnosed with bronchitis. Patient continues to of increasing cough. Some sputum production. No fever no chills. Congestive the chest. Was feeling miserable. Decided to come to the ER. Feeling a bit better and bronchodilators. Admitted with COPD exacerbation precipitated by COVID 19. Started on nebulized, tinnitus, steroids, Mucinex, incentive spirometry. December 18: Some cough still present. Breathing a bit better. Less congested. Oral intake fair. IV Solu-Medrol added. Discussed with patient. December 19: Patient had severe bout of coughing last night. He notices that is much worse when he lies down. Protonix being added. Also told to avoid cold liquids. Bronchitis Solu-Medrol to continue. Oral intake fair. Warm water with salt gargle. Discussed with patient and daughter the bedside. December 20: Patient slept better last night. Breathing better. On bronchodilators, steroids. Pulmonary wishes to keep patient through the weekend. Increase activity as tolerated. Active Medications Acetaminophen (Acetaminophen Tab 325 Mg Tab) 650 mg PO Q6HR PRN PRN Reason: Mild Pain or Fever > 100.5 Albuterol/Ipratropium (Ipratropium-Albuterol 3 Ml Neb) 3 ml INHALATION RT-QID [facility] Last Admin: 12/20/21 11:42 Dose: 3 ml Alprazolam (Alprazolam 0.25 Mg Tab) 0.25 mg PO Q6HR PRN PRN Reason: Anxiety Last Admin: 12/19/21 01:40 Dose: 0.25 mg Aspirin (Aspirin 81 Mg) 81 mg PO DAILY [facility] Last Admin: 12/20/21 08:26 Dose: 81 mg Budesonide (Budesonide 1 Mg/2 Ml Nebu) 1 mg INHALATION RT-BID [facility] Last Admin: 12/20/21 08:54 Dose: 1 mg Calcium Carbonate/Glycine (Calcium Carbonate 500 Mg Chewable) 1,000 mg PO Q4HR PRN PRN Reason: Dyspepsia Enoxaparin Sodium (Enoxaparin 40 Mg/0.4 Ml Syringe) 40 mg SQ DAILY [facility] Last Admin: 12/20/21 08:26 Dose: 40 mg Formoterol Fumarate (Formoterol Fumarate 20 Mcg/2 Ml Nebu) 20 mcg INHALATION RT-BID [facility] Last Admin: 12/20/21 08:54 Dose: 20 mcg Guaifenesin (Guaifenesin 600 Mg Tablet.Er) 600 mg PO QID [facility] Last Admin: 12/20/21 13:21 Dose: 600 mg Guaifenesin/Codeine Phosphate (Guaifenesin-Coden 100-10mg/5ml 10 Ml Cup) 10 ml PO Q6HR [facility] Last Admin: 12/20/21 13:20 Dose: 10 ml Hydrochlorothiazide (Hydrochlorothiazide 12.5 Mg Cap) 12.5 mg PO DAILY [facility] Last Admin: 12/20/21 08:26 Dose: 12.5 mg Lactulose (Lactulose 20 Gm/30 Ml Cup) 20 gm PO DAILY PRN PRN Reason: Constipation Losartan Potassium (Losartan 50 Mg Tab) 50 mg PO DAILY [facility] Last Admin: 12/20/21 08:26 Dose: 50 mg Methylprednisolone Sodium Succinate (Methylprednisolone Sod Succi 125 Mg/2 Ml Vial) 60 mg IV Q6HR [facility] Last Admin: 12/20/21 13:20 Dose: 60 mg Montelukast Sodium (Montelukast 10 Mg Tab) 10 mg PO HS [facility] Last Admin: 12/19/21 20:25 Dose: 10 mg Multivitamins (Multivitamins, Thera 1 Each Tab) 1 each PO DAILY [facility] Last Admin: 12/20/21 08:26 Dose: 1 each Naloxone HCl (Naloxone 0.4 Mg/Ml 1 Ml Vial) 0.2 mg IVP Q2M PRN PRN Reason: Opioid Reversal Non-Formulary Medication (Rosuvastatin Calcium [Rosuvastatin Calcium]) 20 mg PO DAILY [facility] Last Admin: 12/20/21 08:27 Dose: Not Given Ondansetron HCl (Ondansetron 4 Mg/2 Ml Vial) 4 mg IVP Q8HR PRN PRN Reason: Nausea And Vomiting Pantoprazole Sodium (Pantoprazole 40 Mg Tablet) 40 mg PO AC-BID [facility] Last Admin: 12/20/21 08:26 Dose: 40 mg Tamsulosin HCl (Tamsulosin 0.4 Mg Cap.Er.24h) 0.4 mg PO PC-SUPPER [facility] Last Admin: 12/19/21 17:54 Dose: 0.4 mg Past medical history to include: CAD with stent, hyperlipidemia, hypertension, atonic bladder with self-catheterization from BPH Social history: . 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 No smoking or alcohol. Physical examination: VITAL SIGNS: 98.2, 76, 20, 127 / 69, 94% room air GENERAL: Sitting up, in chair, comfortable EYES: Pupils equal. Conjunctiva normal. HEENT: External appearance of nose and ears normal, oral cavity grossly normal. NECK: JVD not raised; masses not palpable. HEART: First and second heart sounds are normal; no edema. LUNGS: Respiratory rate normal; occasional wheezing, better air entry ABDOMEN: Soft, nontender, liver spleen not palpable, no masses palpable. PSYCH: Alert and oriented x3; mood and affect normal. MUSCULOSKELETAL:No Clubbing/cyanosis;muscles-grossly intact, OA INVESTIGATIONS, reviewed in the clinical context: 2-D echocardiogram: Normal LV function. Computed tomography scan chest: Bronchial nodularity just superior segment right lower lobe as well as calcified granuloma at the right middle lobe. WBC 13.3 hemoglobin 15 platelets 254 sodium 138 potassium 4.5 creatinine 1.01 pCO2 65 Troponin I less than 0.012 proBNP 26 COVID 19 PCR: Not detected EKG tracing personally reviewed by me-regular blood block, sinus rhythm Chest x-ray film personally reviewed by me-prominent pulmonary artery. Questionable hyperinflation Assessment and plan: -Possible COPD in a nonsmoker. Precipitated by COVID infection 9 weeks ago. Has failed outpatient steroids, antibiotics.: Improving DuoNeb, Perforomist, Pulmicort. Mucinex. Incentive spirometry. IV Solu-Medrol -Bouts of coughing possibly precipitated by reflux: Better Protonix. -Abnormal computed tomography scan chest: Follow-up with Dr. 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 Mucinex. Incentive spirometry. IV Solu-Medrol . Protonix. Pulmonary wishes to wash the patient over the weekend. Discussed with patient.
[2021-12-20] MEDS: TAMSULOSIN 0.4 MG CAP.ER.24H PO SCH (17:28)
[2021-12-20] MEDS: MONTELUKAST 10 MG TAB PO SCH (20:43)
[2021-12-21] MEDS: guaiFENesin-Coden 100-10MG/5ML 10 ML CUP PO SCH (05:35)
[2021-12-21] MEDS: methylPREDNISolone SOD SUCCI 125 MG/2 ML VIAL IV SCH (05:35)
[2021-12-21] MEDS: IPRATROPIUM-ALBUTEROL 3 ML NEB INHALATION SCH ×2 (08:00→11:16)
[2021-12-21] MEDS: BUDESONIDE 1 MG/2 ML NEBU INHALATION SCH (08:00)
[2021-12-21] MEDS: FORMOTEROL FUMARATE 20 MCG/2 ML NEBU INHALATION SCH (08:00)
[2021-12-21] MEDS: ASPIRIN 81 MG PO SCH (08:31)
[2021-12-21] MEDS: PANTOPRAZOLE 40 MG TABLET PO SCH (08:31)
[2021-12-21] MEDS: MULTIVITAMINS, THERA 1 EACH TAB PO SCH (08:31)
[2021-12-21] MEDS: guaiFENesin 600 MG TABLET.ER PO SCH (08:32)
[2021-12-21] MEDS: hydroCHLOROthiazide 12.5 MG CAP PO SCH (08:32)
[2021-12-21] MEDS: NON FORMULARY DRUG (Rosuvastatin Calcium [Rosuvastatin Calcium] 40 MG Tablet) PO SCH (08:32)
[2021-12-21] MEDS: ENOXAPARIN 40 MG/0.4 ML SYRINGE SQ SCH (08:32)
[2021-12-21] MEDS: LOSARTAN 50 MG TAB PO SCH (08:32)
[2021-12-21 08:47] VITALS: BP 136/80; RESP 18; TEMP 98.5
[2021-12-21 11:18] VITALS: PULSE 72
--- NOTE | 2021-12-21 13:09 | P.DS ---
Providers Date of admission: 12/17/21 13:43 Expected date of discharge: 12/21/21 Attending physician: Tito Andres Consults: 12/17/21 13:39 Consult Physician Routine Consulting Provider: Jordi Walters Consult Reason/Comments: hypercarbic respiratory failure Do you want consulting provider notified?: Yes Primary care physician: J Luis Pruitt MD Hospital Course: Chief Complaint: Short of breath This is a pleasant 76-year-old patient follows with Dr. Alicia. 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 About 9 weeks ago patient did have COVID. 3 weeks following the patient kept having congested cough. Return to see her family doctor. Initially given steroids.. No improvement and given antibiotics and inhaler. No improvement. Went down to the ER at [facility]. Diagnosed with bronchitis. Patient continues to of increasing cough. Some sputum production. No fever no chills. Congestive the chest. Was feeling miserable. Decided to come to the ER. Feeling a bit better and bronchodilators. Admitted with COPD exacerbation precipitated by COVID 19. Started on nebulized, tinnitus, steroids, Mucinex, incentive spirometry. December 18: Some cough still present. Breathing a bit better. Less congested. Oral intake fair. IV Solu-Medrol added. Discussed with patient. December 19: Patient had severe bout of coughing last night. He notices that is much worse when he lies down. Protonix being added. Also told to avoid cold liquids. Bronchitis Solu-Medrol to continue. Oral intake fair. Warm water with salt gargle. Discussed with patient and daughter the bedside. December 20: Patient slept better last night. Breathing better. On bronchodilators, steroids. Pulmonary wishes to keep patient through the weekend. Increase activity as tolerated. December 21: Slept much better last night. Breathing better. Cleared by pulmonary. Prednisone taper. Singulair. Symbicort. Advised to keep using incentive spirometry and breathing exercises. Will follow-up with pulmonary. 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 No smoking or alcohol. Physical examination: VITAL SIGNS: 98.5, 57, 18, 136/80, 95% room air GENERAL: Sitting up, in chair, comfortable EYES: Pupils equal. Conjunctiva normal. HEENT: External appearance of nose and ears normal, oral cavity grossly normal. NECK: JVD not raised; masses not palpable. HEART: First and second heart sounds are normal; no edema. LUNGS: Respiratory rate normal; decreased wheezing, better air entry ABDOMEN: Soft, nontender, liver spleen not palpable, no masses palpable. PSYCH: Alert and oriented x3; mood and affect normal. MUSCULOSKELETAL:No Clubbing/cyanosis;muscles-grossly intact, OA INVESTIGATIONS, reviewed in the clinical context: 2-D echocardiogram: Normal LV function. Computed tomography scan chest: Bronchial nodularity just superior segment right lower lobe as well as calcified granuloma at the right middle lobe. WBC 13.3 hemoglobin 15 platelets 254 sodium 138 potassium 4.5 creatinine 1.01 pCO2 65 Troponin I less than 0.012 proBNP 26 COVID 19 PCR: Not detected EKG tracing personally reviewed by me-regular blood block, sinus rhythm Chest x-ray film personally reviewed by me-prominent pulmonary artery. Questionable hyperinflation Assessment and plan: -Possible COPD in a nonsmoker. Precipitated by COVID infection 9 weeks ago. Has failed outpatient steroids, antibiotics.: Improving DuoNeb, Perforomist, Pulmicort. Mucinex. Incentive spirometry. IV Solu-Medrol Discharged home on Symbicort 1604.5, prednisone taper, Singulair. -GERD, uncontrolled, better Protonix. -Abnormal computed tomography scan chest: Follow-up with Dr. 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 Self-catheterization -BPH Flomax Disposition: Home Patient Condition at Discharge: Fair Plan - Discharge Summary New Discharge Prescriptions: New predniSONE 10 mg PO DAILY #30 tab Pantoprazole [Protonix] 40 mg PO HS #30 tab Montelukast [Singulair] 10 mg PO HS #30 tab Budesonide-Formot 160-4.5 Mcg [Symbicort 160-4.5 Mcg Inhaler] 1 puff INHALATION BID #1 each Continue Sildenafil Citrate 100 mg PO DAILY PRN PRN Reason: E.D Rosuvastatin Calcium 20 mg PO DAILY Multivitamins, Thera [Multivitamin (formulary)] 1 tab PO DAILY Losartan [Cozaar] 50 mg PO DAILY Aspirin EC [Ecotrin Low Dose] 81 mg PO DAILY hydroCHLOROthiazide 12.5 mg PO DAILY Albuterol Sulfate [Albuterol Sulfate Hfa] 2 puff PO RT-Q6H PRN PRN Reason: Shortness Of Breath Discharge Medication List Albuterol Sulfate [Albuterol Sulfate Hfa] 2 puff PO RT-Q6H PRN 12/17/21 [History] Aspirin EC [Ecotrin Low Dose] 81 mg PO DAILY 12/17/21 [History] Losartan [Cozaar] 50 mg PO DAILY 12/17/21 [History] Multivitamins, Thera [Multivitamin (formulary)] 1 tab PO DAILY 12/17/21 [History] Rosuvastatin Calcium 20 mg PO DAILY 12/17/21 [History] Sildenafil Citrate 100 mg PO DAILY PRN 12/17/21 [History] hydroCHLOROthiazide 12.5 mg PO DAILY 12/17/21 [History] Budesonide-Formot 160-4.5 Mcg [Symbicort 160-4.5 Mcg Inhaler] 1 puff INHALATION BID #1 each 12/21/21 [Rx] Montelukast [Singulair] 10 mg PO HS #30 tab 12/21/21 [Rx] Pantoprazole [Protonix] 40 mg PO HS #30 tab 12/21/21 [Rx] predniSONE 10 mg PO DAILY #30 tab 12/21/21 [Rx] Follow up Appointment(s)/Referral(s): Jordi Walters MD [STAFF PHYSICIAN] - 10 Days J Luis Pruitt MD [Primary Care Provider] - 1-2 days Discharge Disposition: HOME SELF-CARE
--- NOTE | 2021-12-21 15:20 | P.PN ---
Subjective Progress Note Date: 12/21/21 Principal diagnosis: Post viral cough and acute exacerbation of mild intermittent asthma This is a very pleasant 76-year-old male patient who follows with Dr. Pruitt as his primary care provider. He has a history of hypertension, hyperlipidemia, coronary artery disease with previous stent placement, osteoarthritis with multiple orthopedic surgeries. He developed COVID-19 infection about 9 weeks ago and since that time he has been suffering with a chronic cough. He has been treated with multiple rounds of antibiotics and steroids in the outpatient setting without much improvement. He denies any acid reflux. No sinus drainage. He is a lifelong nonsmoker. No previous history of asthma or COPD. Chest x-ray reveals no acute pulmonary process. CT scan of the chest revealed branching nodularity in the superior segment of the right lower lobe as well as calcified granuloma within the right middle lobe. Findings most likely postinflammatory in nature. White count 13.3. Hemoglobin 15.0. Sodium 138. Potassium 4.5. BUN 30. Creatinine 1.01. Glucose 105. ProBNP 26. Gagnon virus by PCR not detected. Pro-calcitonin pending. The patient is seen today in consultation on the regular medical floor. He is currently sitting up in bed. Awake and alert in no acute distress. Maintaining good O2 saturations in the 90s on room air. He continues with a dry nonproductive cough. Some faint wheezing. He was initiated on Pulmicort and Perforomist inhalations, DuoNeb inhalations. The patient is seen today 12/19/2021 in follow-up on the regular medical floor. He is awake and alert in no acute distress. He has had ongoing issues with cough and congestion. Not much improvement today compared to yesterday. He continues to maintain good O2 saturations in the 90s on room air. He's afebrile. Hemodynamically stable. He is continued on DuoNeb inhalations, Pulmicort and Perforomist inhalations, IV Solu-Medrol. The patient is seen today 12/20/2021 in follow-up on the regular medical floor. He is currently resting comfortably in bed. Awake and alert in no acute distress. He is feeling better today. Not quite back to his baseline. Still with a nonproductive cough. Still with some wheezing. He is continued on DuoNeb inhalations, Pulmicort and Perforomist inhalations, IV Solu-Medrol. He remains on Singulair, Robitussin, Mucinex. Lovenox for DVT prophylaxis. Reevaluated today on 12/21/2021 patient is doing better, breathing easier, less cough and less shortness of breath and no wheezing. Patient is maintained on multiple meds I will transition the patient to oral prednisone 40 mg to be tapered over the next 16 days patient will go home on Symbicort and he will go home on albuterol as well as Singulair. I will clear the patient to be discharged home today. Objective - Vital Signs Vital signs: Vital Signs Temp 98.5 F 12/21/21 08:00 Pulse 72 12/21/21 11:25 Resp 18 12/21/21 08:00 BP 136/80 12/21/21 08:00 Pulse Ox 95 12/21/21 08:00 FiO2 Intake & Output 12/20/21 12/21/21 12/21/21 18:59 06:59 18:59 Intake Total 900 300 Balance 900 300 Intake: Oral 900 300 Other: Voiding Method Toilet Toilet Toilet Self-Catheterization Self-Catheterization Self-Catheterization # Voids 3 1 - Exam Physical Exam: Revealed 76-year-old white male in no distress Head: Atraumatic normocephalic HEENT:[Neck is supple.] [No neck masses.] [No thyromegaly.] [No JVD.] Chest: [Clear throughout, no crackles, no rhonchi, no wheezes.] Cardiac Exam: [Normal S1 and S2, no S3 gallop, no murmur.] Abdomen: [Soft, nontender, no megaly, no rebound, no guarding, normal bowel sounds.] Extremities: [No clubbing, no edema, no cyanosis.] Neurological Exam: [No focal neurologic deficit.] Psychiatric: Normal mood affect and normal mental status examination Skin: No rashes - Labs CBC & Chem 7: 12/17/21 12:45 12/17/21 12:45 Assessment and Plan Assessment: Impression: Acute exacerbation of mild intermittent asthma, most likely exacerbated by recent COVID-19 infection Postviral cough secondary to COVID-19 infection Branch nodularity in the superior segment of the right lower lobe, will need outpatient follow-up and repeat CT of the chest in 4 months Lifelong nonsmoker Degenerative joint disease Dyslipidemia Recommendation: Will clear the patient to be discharged home on prednisone, Symbicort, albute rol, Singulair, Protonix, and cough suppressant medication. Reevaluated in the office in one to 2 weeks Time with Patient: Less than 30
== END 2021-12-21 12:21 | disposition home or self-care (01) | DRG 190 ==
LOC: EC 10:09 → 6NMEDSUR 13:43 → OBSVTOIN 12-19 12:50 → UNDODISOB 12-21 12:21
PROVIDERS: ADMIT Hospitalist; ATTEND Hospitalist
DX: J44.1 Chronic obstructive pulmonary disease with (acute) exacerbation (principal); J96.92 Respiratory failure, unspecified with hypercapnia; J45.20 Mild intermittent asthma, uncomplicated; U09.9 Post COVID-19 condition, unspecified; Z86.16 Personal history of COVID-19; Z20.822 Contact with and (suspected) exposure to COVID-19; I25.10 Atherosclerotic heart disease of native coronary artery without angina pectoris; N31.2 Flaccid neuropathic bladder, not elsewhere classified; I34.0 Nonrheumatic mitral (valve) insufficiency; K21.9 Gastro-esophageal reflux disease without esophagitis; N40.0 Benign prostatic hyperplasia without lower urinary tract symptoms; I45.10 Unspecified right bundle-branch block; E78.5 Hyperlipidemia, unspecified; E86.0 Dehydration; F41.9 Anxiety disorder, unspecified; I10 Essential (primary) hypertension; H93.19 Tinnitus, unspecified ear; K59.00 Constipation, unspecified; M19.90 Unspecified osteoarthritis, unspecified site; Z79.52 Long term (current) use of systemic steroids; Z79.82 Long term (current) use of aspirin; Z79.899 Other long term (current) drug therapy; Z95.5 Presence of coronary angioplasty implant and graft; Z96.619 Presence of unspecified artificial shoulder joint; Z88.8 Allergy status to other drugs, medicaments and biological substances
CPT/HCPCS: 36415; 71046; 71270; 80053; 82803; 83735; 83880; 84145; 84484; 85025; 87635; 93005; 93306; 94640; 96374; 99285

== ENCOUNTER 2022-11-20 07:58 | Day surgery (SDC) | payer MEDICARE, OTHER ==
[2022-11-17 16:10] VITALS: BMI 36.5
[2022-11-20] MEDS ORDERED: LACTATED RINGERS 1,000 ML IV SCH (08:19)
[2022-11-20] MEDS ORDERED: LIDOCAINE 1% (10MG/ML) FOR IV START INTRADERMA PRN (08:19)
[2022-11-20] MEDS ORDERED: ONDANSETRON 4 MG/2 ML VIAL IVP PRN (08:19)
[2022-11-20 08:35] VITALS: RESP 16; TEMP 96.9
[2022-11-20] MEDS ORDERED: PROPOFOL 10 MG/ML 20 ML VIAL IV ONE (08:46)
--- NOTE | 2022-11-20 09:01 | P.PCN ---
Date of Procedure: 11/20/22 Procedure(s) Performed: BRIEF HISTORY: Patient is a 77-year-old pleasant white male scheduled for an elective colonoscopy as a part of screening for colon cancer. His last colonoscopy was 25 years ago. PROCEDURE PERFORMED: Colonoscopy. PREOPERATIVE DIAGNOSIS: Screening for colon cancer. IV sedation per Anesthesia. PROCEDURE: After informed consent was obtained, the patient, was brought into the endoscopy unit. IV sedation was administered by Anesthesia under continuous monitoring. Digital rectal examination was normal. Initially the Olympus CF-160 flexible video colonoscope was then inserted in the rectum, gradually advanced into the cecum without any difficulty. Careful examination was performed as the scope was gradually being withdrawn. Ileocecal valve and the appendiceal orifice were visualized and appeared normal. Prep was excellent. Mucosa of the cecum, ascending colon, transverse colon, descending colon, sigmoid colon, and rectum appeared normal. Scattered sigmoid diverticulosis Retroflexion was performed in the rectum and no lesions were seen. The patient tolerated the procedure well. IMPRESSION: Normal-appearing colon from rectum to cecum with no evidence of colorectal neoplasia . Scattered sigmoid diverticulosis RECOMMENDATIONS: Findings of this examination were discussed with the patient as well as his family. He was advised to have a repeat screening colonoscopy in 10 years.
[2022-11-20 09:28] VITALS: BP 129/73; PULSE 67
== END 2022-11-20 09:49 | disposition home or self-care (01) ==
LOC: ORWHC2ENDO 07:58
PROVIDERS: ATTEND Internal Medicine Gastroenterology
DX: Z12.11 Encounter for screening for malignant neoplasm of colon (principal); K57.30 Diverticulosis of large intestine without perforation or abscess without bleeding; I10 Essential (primary) hypertension; I25.10 Atherosclerotic heart disease of native coronary artery without angina pectoris; E78.5 Hyperlipidemia, unspecified; Z79.899 Other long term (current) drug therapy; Z95.5 Presence of coronary angioplasty implant and graft; Z88.8 Allergy status to other drugs, medicaments and biological substances; Z79.82 Long term (current) use of aspirin
CPT/HCPCS: 45378; J2704; G0121